=== PATIENT | male | born 1975 | race African-American/Black ===

== ENCOUNTER 2020-10-07 10:25 | Emergency (ER) | payer BC, SELFPAY ==
--- NOTE | ~2020-10-07 | XR_ITS ---
EXAMINATION: XR chest 2V 10/07/2020 12:05 INDICATION: Chest palpitations PROCEDURE: 2 view chest COMPARISON: No prior studies for comparison. FINDINGS: The lungs are clear. The cardiomediastinal silhouette is within normal limits. There are no pleural effusions. There is no pneumothorax suspected. IMPRESSION: 1: NO ACUTE CARDIOPULMONARY DISEASE. Reviewed, dictated and finalized at location A.
[2020-10-07 10:28] VITALS: BP 131/78; PULSE 80; RESP 20; TEMP 36.6; O2SAT 100
--- NOTE | 2020-10-07 11:53 | ECG_ITS ---
Measurements Intervals [place] Rate: 75 P: 75 MD: 206 QRS: 71 QRSD: 95 T: 59 QT: 367 QTc: 411 Interpretive Statements SINUS RHYTHM INCOMPLETE RIGHT BUNDLE BRANCH BLOCK VOLTAGE CRITERIA FOR LVH ST ELEVATION IN ANTEROLAT/INF LEADS- PROBABLY EARLY REPOLARIZATION BASELINE WANDER- AVR, AVL, AVF, V3 BORDERLINE ECG Electronically Signed On 10-07-2020 16:54:03 CDT by Case Figueroa D.O.
--- NOTE | 2020-10-07 11:54 | ED.GENADULT ---
HPI - General Adult General Chief complaint: Unspecified Stated complaint: i aint feeling too good Time Seen by Provider: 10/07/20 11:08 Source: patient Mode of arrival: ambulatory Limitations: no limitations History of Present Illness HPI narrative: Patient presents for evaluation of palpitations and LLE numbness and tingling that occurred at approximately 0900 this morning. He states symptoms occurred when he was outside speaking with someone. Symptoms lasted approximately 30 mins and he has not had any recurrence of symptoms thereafter. Denies any chest pain, cough. States that he have a pint of alcohol. He is unsure whether his symptoms were related to that. He does smoke 1/4 pack/day. Denies illicit drug use. No history of similar symptoms. No additional complaints or concerns. Related Data Allergies Allergy/AdvReac Type Severity Reaction Status Date / Time No Known Allergies Allergy Unverified 04/26/18 08:53 Review of Systems Review of Systems: CONSTITUTIONAL: Denies fever, chills, or sweats. EYES: Denies visual changes, redness, or discharge. ENT: Denies rhinorrhea, congestion, sore throat, or otalgia. CARDIOVASCULAR: Reports palpitations. Denies chest pain or edema. RESPIRATORY: Denies cough or dyspnea. GASTROINTESTINAL: Denies abdominal pain, nausea, vomiting, or diarrhea. GENITOURINARY: Denies dysuria or hematuria. SKIN: Denies rash or itching. MUSCULOSKELETAL: Denies back pain, joint pain, or myalgia. NEUROLOGIC: Reports numbness and tingling in LLE. Denies headache, dizziness, or weakness. PSYCHIATRIC: Denies anxiety or depression. [facility] Past Medical History Medical History (Updated 10/07/20 @ 13:32 by TAJ Melchor, ) No pertinent past medical history Surgical History Surgical History No pertinent past surgical history Family History Family History Mother Diabetes mellitus Father No problems noted. Social History Social History Smoking packs per day: 0.25 Smoking cigarettes per day: 5.0 Smoking status: Current every day smoker Alcohol intake: current Alcohol use details: socially Substance use: never Living arrangements: alone Gender identity (if verbalized by the patient): Male Spiritual care concerns: No Exam Narrative: GENERAL: Well-appearing, well-nourished, and in no acute distress. HEAD: Normocephalic, atraumatic. EYES: PERRLA and EOMI. ENT: Nares clear, no rhinorrhea or epistaxis. Mucous membranes moist. Oropharynx without tonsillar hypertrophy exudate or other lesions. Bilateral TMs pearly ye nonbulging NECK: Supple. No adenopathy or masses. No carotid bruits or JVD CHEST: Clear to auscultation. No respiratory distress. No wheezes rales or rhonchi HEART: Regular rate and rhythm. No murmur heard. Normal peripheral pulses. ABDOMEN: Soft, nontender, nondistended, normal active bowel sounds. EXTREMITIES: Normal range of motion. No edema. SKIN: Warm, dry, no rash. NEURO: No focal deficits. Alert and oriented x3. PSYCH: Normal mood and affect. Course Course Emergency Course: He was asymptomatic this is a 44-year-old male who presented with complaints of palpitations and paresthesias in left lower extremity. He was asymptomatic in the ER. Troponins negative. Chest x-ray normal. Labs fairly benign other than mild elevation of CPK, which probably was related to an element of dehydration. He was tolerating oral intake while in the emergency department. He was advised to follow-up outpatient for further evaluation and treatment return for worsening symptoms. Patient agreed with plan of care. Vital Signs Vital signs: Vital Signs Temperature 36.6 C 10/07/20 10:28 Pulse Rate 80 10/07/20 10:28 Respiratory Rate 20 10/07/20 10:28 Blood Press
[2020-10-07 12:49] LABS: Basophils Percent Auto 0.4 % (0.2-1.2); Eosinophils Absolute Auto 0.1 K/mm3 (0-0.3); Eosinophils Percent Auto 1.6 % (0-4.4); Hematocrit 43.2 % (42.0-52.0); Hemoglobin 14.4 g/dL (14.0-18.0); Immature Granulocyte Absolute 0.03 K/mm3 (0.00-0.031); Immature Granulocyte Percent A 0.4 % (0-0.5); Lymphocytes Absolute Auto 0.94 K/mm3 (0.9-3.2); Lymphocytes Percent Auto 12.3 % (18.3-44.2); Mean Corpuscular HGB Conc 33.3 g/dl (32-36); Mean Corpuscular Hemoglobin 30.7 pg (26-34); Mean Corpuscular Volume 92.1 fl (80-100); Mean Platelet Volume 9.2 fl (7.4-10.4); Monocytes Absolute Auto 0.6 K/mm3 (0.1-0.6); Monocytes Percent Auto 7.2 % (2.6-8.5); Neutrophils Percent Auto 78.1 % (45.5-73.1); Platelet Count Result 233 k/mm3 (150-375); Red Blood Count 4.69 M/mm3 (4.6-6.20); Red Cell Distribution Width 13.9 % (11.5-14.5); White Blood Count 7.6 K/mm3 (4.5-10.0)
[2020-10-07 12:58] LABS: Creatine Kinase 378 U/L (55-170)
[2020-10-07 12:59] LABS: Alanine Aminotransferase 36 U/L (4-50); Albumin Level 4.9 g/dL (3.5-5.1); Alkaline Phosphatase 77 U/L (38-126); Anion Gap 7 mmol/L (8-16); Aspartate Amino Transferase 32 U/L (17-59); Bilirubin,Total 1.1 mg/dL (0.2-1.3); Blood Urea Nitrogen 12 mg/dL (9-20); Calcium 9.8 mg/dL (8.4-10.2); Carbon Dioxide 26 mmol/L (22-30); Chloride 105 mmol/L (98-107); Estimated CRCL calculation 102 ml/min; Estimated Glomerular Filt Rate > 60; Glucose 85 mg/dL (65-110); Potassium 4.6 mmol/L (3.4-5.0); Sodium 138 mmol/L (137-145)
[2020-10-07 13:11] LABS: Troponin I < 0.012 ng/mL (0.000-0.034)
[2020-10-07 13:30] LABS: Thyroid Stimulating Hormone 0.284 uIU/mL (0.465-4.680)
[2020-10-07 13:40] VITALS: BP 144/73; PULSE 67; RESP 16; O2SAT 99
[2020-10-07 13:59] LABS: Free T4 Free Thyroxine 0.78 ng/mL (0.78-2.19)
== END 2020-10-07 13:41 | disposition home or self-care (01) ==
PROVIDERS: Emergency Provider Nurse Practitioner
DX: R00.2 Palpitations (principal); R20.2 Paresthesia of skin; E86.0 Dehydration; F17.210 Nicotine dependence, cigarettes, uncomplicated; I45.10 Unspecified right bundle-branch block; R94.31 Abnormal electrocardiogram [ECG] [EKG]
CPT/HCPCS: 36415; 71046; 80053; 82550; 84439; 84443; 84484; 85025; 93005; 99284

== ENCOUNTER 2022-10-20 17:19 | Emergency (ER) | payer SELFPAY ==
[2022-10-20 17:19] VITALS: BP 142/83; PULSE 91; RESP 16; TEMP 37; O2SAT 100
--- NOTE | 2022-10-20 19:21 | ED.BACK ---
HPI - Back Pain/Injury General Chief Complaint: Back Pain/Injury Stated Complaint: lower back pain Time Seen by Provider: 10/20/22 19:21 History of Present Illness HPI Narrative: Patient is a 46-year-old male with no past medical history here with lower back pain. 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 He notes this episode began a few days ago, is intermittent in nature and present on the left lower back. The pain is described as a tightness and radiates into the left buttock. No new trauma. No bowel or bladder incontinence. No enticing event. No saddle anesthesia. No history of IV drug use. No known cancer. No fever or chills. No urinary symptoms. No penile discharge. No numbness or weakness in lower extremities. Related Data Allergies Allergy/AdvReac Type Severity Reaction Status Date / Time No Known Allergies Allergy Unverified 10/20/22 19:50 Review of Systems Review of Systems: CONSTITUTIONAL: Denies fever, chills, or sweats. CARDIOVASCULAR: Denies chest pain, palpitations, or edema. RESPIRATORY: Denies cough or dyspnea. GASTROINTESTINAL: Denies abdominal pain, nausea, vomiting, or diarrhea. GENITOURINARY: Denies dysuria or hematuria. SKIN: Denies rash or itching. MUSCULOSKELETAL: Back pain. NEUROLOGIC: Denies headache, numbness, or weakness. [facility] Past Medical History Medical History (Updated 10/20/22 @ 19:49 by Yudelka Sabillon MD) No pertinent past medical history Surgical History Surgical History No pertinent past surgical history Family History Family History Mother Diabetes mellitus Father No problems noted. Social History Social History Smoking packs per day: 0.25 Smoking cigarettes per day: 5.0 Smoking status: Current every day smoker Alcohol intake: current Alcohol use details: socially Substance use: never Living arrangements: alone Gender identity (if verbalized by the patient): Male Spiritual care concerns: No Exam Narrative: GENERAL: Well-appearing, well-nourished, and in no acute distress. HEAD: Normocephalic, atraumatic. EYES: PERRLA and EOMI. ENT: Nares clear. Mucous membranes moist. NECK: Supple. CHEST: Clear to auscultation. No respiratory distress. HEART: Regular rate and rhythm. Normal peripheral pulses. ABDOMEN: Soft, nontender, nondistended. EXTREMITIES: Normal range of motion. No edema. Tenderness present over left paraspinal lumbar region. No midline tenderness. SKIN: Warm, dry, no rash. NEURO: No focal deficits. Alert and oriented x3. PSYCH: Normal mood and affect. Course Course Emergency Course: Chart review performed. He is here with intermittent lower back pain. Only prior visit in our system was for dehydration in 2020. Vitals grossly normal in triage. Patient seen evaluated. No red flag symptoms. We will do conservative management with pain medication. 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 He notes that he has muscle relaxers at home. Advised to take these with caution and that he cannot drive after taking it. Patient refusing medications. The patient?s provisional diagnosis and plan of care were discussed with the patient and present family. The patient and/or present family expressed understanding of the diagnosis and plan. The nurse was instructed to provide written instructions and appropriate follow-up information. The patient understands their need and responsibility to obtain additional follow-up as instructed. The risks of medications administered and prescribed were discussed with the patient and family present. Vital Signs Vital signs: Vital Signs Temperature 98.6 F 10/20/22 17:19 Pulse Rate 91 10/20/22 17:19 Respiratory
== END 2022-10-20 20:12 | disposition home or self-care (01) ==
PROVIDERS: Emergency Provider Student in an Organized Health Care Education/Training Program
DX: M54.16 Radiculopathy, lumbar region (principal); F17.210 Nicotine dependence, cigarettes, uncomplicated
CPT/HCPCS: 99281

== ENCOUNTER 2023-04-12 19:36 | Emergency (ER) | payer MEDICAID, SELFPAY ==
[2023-04-12 19:38] VITALS: BP 169/98; PULSE 73; RESP 20; TEMP 36.6; O2SAT 100
--- NOTE | 2023-04-12 21:13 | ED.DENTAL ---
HPI - Dental/Oral General Chief complaint: Dental/Oral Stated complaint: Right lower dental pain Time Seen by Provider: 04/12/23 21:15 History of Present Illness HPI Narrative: 47-year-old male reports for evaluation for right tooth pain for the past few weeks with associated edema. States about 3 weeks ago, he was eating something in his right lower molar broke off. States he has been having pain since then has developed swelling in this area. He is established with a dentist. Denies difficulty breathing or swallowing, Fever. Related Data Allergies Allergy/AdvReac Type Severity Reaction Status Date / Time No Known Allergies Allergy Verified 04/12/23 19:41 Review of Systems Review of Systems: CONSTITUTIONAL: Denies fever, chills, or sweats. EYES: Denies visual changes, redness, or discharge. ENT: See HPI CARDIOVASCULAR: Denies chest pain, palpitations, or edema. RESPIRATORY: Denies cough or dyspnea. GASTROINTESTINAL: Denies abdominal pain, nausea, vomiting, or diarrhea. GENITOURINARY: Denies dysuria or hematuria. SKIN: Denies rash or itching. MUSCULOSKELETAL: Denies back pain, joint pain, or myalgia. NEUROLOGIC: Denies headache, numbness, or weakness. PSYCHIATRIC: Denies anxiety or depression. [facility] Past Medical History Medical History No pertinent past medical history Surgical History Surgical History No pertinent past surgical history Family History Family History Mother Diabetes mellitus Father No problems noted. Social History Social History Smoking packs per day: 0.25 Smoking cigarettes per day: 5.0 Smoking status: Current every day smoker Alcohol intake: current Alcohol use details: socially Substance use: never Living arrangements: alone Gender identity (if verbalized by the patient): Male Spiritual care concerns: No Exam Narrative: GENERAL: Well-appearing, well-nourished, and in no acute distress. HEAD: Normocephalic, atraumatic. EYES: PERRLA and EOMI. ENT: Nares clear, no rhinorrhea or epistaxis. Mucous membranes moist. Tooth #27 fractured with surrounding edema into the lower mandible. No areas of fluctuation, no periapical abscess. Floor mouth is soft without crepitus. No trismus. No airway compromise. NECK: Supple. CHEST: Clear to auscultation. No respiratory distress. HEART: Regular rate and rhythm. No murmur heard. Normal peripheral pulses. EXTREMITIES: Normal range of motion. No edema. SKIN: Warm, dry, no rash. NEURO: No focal deficits. Alert and oriented x3 Course Vital Signs Vital signs: Vital Signs Temperature 97.8 F 04/12/23 19:38 Pulse Rate 73 04/12/23 19:38 Respiratory Rate 20 04/12/23 19:38 Blood Pressure 169/98 H 04/12/23 19:38 Pulse Oximetry 100 04/12/23 19:38 Oxygen Delivery Room Air 04/12/23 19:38 Temperature 97.8 F 04/12/23 19:38 Pulse Rate 73 04/12/23 19:38 Respiratory Rate 20 04/12/23 19:38 Blood Pressure 169/98 H 04/12/23 19:38 Pulse Oximetry 100 04/12/23 19:38 Oxygen Delivery Room Air 04/12/23 19:38 MDM - Dental/Oral MDM Narrative Medical decision making narrative: 47-year-old male presents to the emergency department for right mandibular dental pain for the past few weeks. See HPI for further history. Triage vital significant for elevated blood pressure, otherwise unremarkable. He is afebrile. Exam is significant for the above. There is no trismus, for mouth is soft without crepitus. No airway compromise. Will start him on Augmentin and have him follow closely with his dentist which he agrees to call on Friday. Advised Tylenol ibuprofen for pain. strict ED return precautions were discussed. He is agreeable with the plan verba
== END 2023-04-12 21:24 | disposition home or self-care (01) ==
LOC: ANHED 21:21
PROVIDERS: Emergency Provider Physician Assistant
DX: K02.9 Dental caries, unspecified (principal); F17.210 Nicotine dependence, cigarettes, uncomplicated
CPT/HCPCS: 99283

== ENCOUNTER 2024-02-01 10:50 | Emergency (ER) | payer OTHER, MEDICAID, SELFPAY ==
[2024-02-01 10:51] VITALS: BP 142/89; PULSE 79; RESP 18; TEMP 36.1; O2SAT 100
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
[2024-02-01] MEDS: HYDROcodone/acetaminophen (*CRX) 5-325 MG TABLET 1 TAB PO (12:38)
[2024-02-01 13:17] VITALS: BP 133/85; PULSE 69; RESP 15; O2SAT 97
== END 2024-02-01 13:19 | disposition home or self-care (01) ==
PROVIDERS: Emergency Provider Student in an Organized Health Care Education/Training Program
DX: S39.012A Strain of muscle, fascia and tendon of lower back, initial encounter (principal); S29.012A Strain of muscle and tendon of back wall of thorax, initial encounter; V89.2XXA Person injured in unspecified motor-vehicle accident, traffic, initial encounter; F17.210 Nicotine dependence, cigarettes, uncomplicated
CPT/HCPCS: 99282; A9270

== ENCOUNTER 2024-08-14 08:55 | Emergency (ER) | payer BC, SELFPAY ==
--- NOTE | ~2024-08-14 | XR_ITS ---
EXAMINATION: XR chest 2V 08/14/2024 09:29 INDICATION: Cough PROCEDURE: 2 view chest COMPARISON: 10/07/2020 FINDINGS: The lungs are clear. The cardiomediastinal silhouette is within normal limits. There are no pleural effusions. There is no pneumothorax suspected. IMPRESSION: 1: NO ACUTE CARDIOPULMONARY DISEASE. Reviewed, dictated and finalized at location B.
[2024-08-14 09:07] VITALS: BP 149/87; PULSE 93; RESP 16; TEMP 36.6; O2SAT 97
--- NOTE | 2024-08-14 09:10 | ED_ITS ---
HPI - General Adult General Chief complaint: Upper Respiratory Infection Stated complaint: sneezing and coughing Time Seen by Provider: 08/14/24 08:59 History of Present Illness HPI narrative: 48-year-old male presented to the emergency department for evaluation for nasal congestion cough and cold symptoms. Patient states symptoms started few days ago. Patient did take some Mindy-Alfred that did not help significantly. Patient denies any fevers. Related Data Allergies Allergy/AdvReac Type Severity Reaction Status Date / Time No Known Allergies Allergy Verified 06/30/24 15:50 Review of Systems Review of Systems: All systems reviewed & are unremarkable except as noted in HPI and below PMFSH Past Medical History Medical History No pertinent past medical history Surgical History Surgical History No pertinent past surgical history Family History Family History Mother Diabetes mellitus Father No problems noted. Social History Social History (System 06/30/24 @ 15:50 by John Treadwell) Smoking packs per day: 0.25 Smoking cigarettes per day: 5.0 Smoking status: Current every day smoker Alcohol intake: current Alcohol use details: socially Substance use: never Living arrangements: alone Occupation/Education: unemployed Additional occupation/education comments: currently laid off Gender identity (if verbalized by the patient): Male Spiritual care concerns: No Exam Narrative: APPEARANCE: Well appearing, no pain, no distress, well-nourished. HEAD: normocephalic, atraumatic. EYES: PERRLA/EOMI, conjunctivae clear. NOSE: Nasal congestion with postnasal drip EARS:TMS clear with good light reflex. THROAT: Pharynx clear, no exudate. NECK: Supple. No adenopathy, no masses. RESPIRATORY: Airway patent, respirations nonlabored. Clear to auscultation bilaterally, no rales, rhonchi, wheezing. CARDIOVASCULAR: Regular rate and rhythm without murmurs rubs or gallops. ABDOMINAL: Soft, nontender, nondistended, normal bowel sounds MUSCULOSKELETAL: Moves all extremities. Strength/ROM intact, No edema, No calf tenderness. NEURO: Alert. Cranial nerves II through XII intact. Good gait. Good coordination SKIN: Warm, dry. Normal Color Course Vital Signs Vital signs: Vital Signs Temperature 97.9 F 08/14/24 09:07 Pulse Rate 93 08/14/24 09:07 Respiratory Rate 16 08/14/24 09:07 Blood Pressure 149/87 H 08/14/24 09:07 Pulse Oximetry 97 08/14/24 09:07 Oxygen Delivery Room Air 08/14/24 09:07 Temperature 97.8 F 08/14/24 10:30 Pulse Rate 82 08/14/24 10:30 Respiratory Rate 16 08/14/24 10:30 Blood Pressure 138/78 08/14/24 10:30 Pulse Oximetry 97 08/14/24 10:30 Oxygen Delivery Room Air 08/14/24 09:07 Medical Decision Making MDM Narrative Medical decision making narrative: 48-year-old male presents to the emergency department for evaluation for nasal congestion and cough. Patient was negative for COVID RSV and influenza chest x- ray shows no acute cardiopulmonary abnormality. Patient does have postnasal drip. Patient was advised to take a decongestant and Tylenol ibuprofen as needed. Suspect seasonal allergies worse as viral syndrome. Differential Diagnosis Differential Diagnosis: Pneumonia, COVID, RSV, influenza, nasal congestion, seasonal allergy Vital Signs Vital Signs: Vital Signs Temperature 97.9 F 08/14/24 09:07 Pulse Rate 93 08/14/24 09:07 Respiratory Rate 16 08/14/24 09:07 Blood Pressure 149/87 H 08/14/24 09:07 Pulse Oximetry 97 08/14/24 09:07 Oxygen Delivery Room Air 08/14/24 09:07 Temperature 97.8 F 08/14/24 10:30 Pulse Rate 82 08/14/24 10:30 Respiratory Rate 16 08/14/24 10:30 Blood Pressure 138/78 08/14/24 10:30 Pulse Oximetry 97 08/14/24 10:30 Oxygen Delivery Room Air 08/14/24 09:07 Lab Data Labs: Lab Results 08/14/24 Range/Units 09:14 Influenza A (RT-PCR) Negative (Negative) Influenza B (RT-PCR) Negative (Negative) RSV (RT-PCR) Negative (Negative) SARS-CoV-2 RNA (RT-PCR) Negative (Negative) Imaging Data Radiologist's impression: Impressions Chest X-Ray 08/14/24 09:37 IMPRESSION: 1: NO ACUTE CARDIOPULMONARY DISEASE. Discharge Plan Discharge Clinical Impression: Mild nasal congestion, Cough Patient Disposition: Home Condition: Stable Instructions: Antibiotic Form Additional Instructions: Mild decongestant to help with nasal congestion and postnasal drip. Tylenol and ibuprofen for body aches. Close follow-up with your primary care physician. Patient Language: Somali Prescriptions: No Action lidocaine 4 % adhesive patch,medicated 1 patch topical DAILY PRN (Reason: pain) Qty: 5 0RF methocarbamol 750 mg tablet 750 mg PO HS Qty: 7 0RF ibuprofen 600 mg tablet 600 mg PO TID PRN (Reason: pain) Qty: 30 0RF acetaminophen 500 mg capsule 1,000 mg PO Q6H PRN (Reason: pain) Qty: 30 0RF Follow-up/Referrals: UNKNOWN,DOCTOR [Non-Staff] -
[2024-08-14 09:55] LABS: Influenza A QL RT-PCR Negative (Negative); Influenza B QL RT-PCR Negative (Negative); RSV RNA, RT-PCR Negative (Negative); SARS-CoV-2 RNA PCR Negative (Negative)
[2024-08-14 10:30] VITALS: BP 138/78; PULSE 82; RESP 16; TEMP 36.6; O2SAT 97
== END 2024-08-14 10:54 | disposition home or self-care (01) ==
PROVIDERS: Emergency Provider Emergency Medicine
DX: R05.9 Cough, unspecified (principal); R09.81 Nasal congestion; Z20.822 Contact with and (suspected) exposure to COVID-19; F17.210 Nicotine dependence, cigarettes, uncomplicated
CPT/HCPCS: 71046; 87637; 99283